=== PATIENT | male | born 1985 | race Caucasian/White ===

== ENCOUNTER → 2019-09-26 12:24 | Outpatient (CLI) | payer OTHER, SELFPAY ==
--- NOTE | 2019-09-26 12:34 | XR_ITS ---
PROCEDURE: XR ANKLE WT BEARING RT MIN 3V CLINICAL INDICATION: R ankle injury Posttraumatic pain COMPARISON: ANKL3 ANKLE-LT-3 VIEWS from 01/31/2014 ANKL3 ANKLE-LT-3 VIEWS from 02/21/2014 ANKL3 ANKLE-LT-3 VIEWS from 03/07/2014 FINDINGS: No fracture, dislocation, lytic change, or blastic change evident. No significant degenerative change IMPRESSION: No acute findings. Dictated by: Hamzah Wilkerson MD 09/26/2019 15:24 Electronically signed by Hamzah Wilkerson MD in [place] 09/26/2019 15:24
== END ==
PROVIDERS: PCP Emergency Medicine; Visit Provider Nurse Practitioner Family
DX: M25.571 Pain in right ankle and joints of right foot (principal)
CPT/HCPCS: 73610

== ENCOUNTER 2020-06-16 15:45 | Emergency (ER) | payer BC, SELFPAY ==
[2020-06-16 16:25] VITALS: BP 136/87; PULSE 77; RESP 19; TEMP 36.8; O2SAT 98; BMI 31.0
--- NOTE | 2020-06-16 16:48 | HMH.EDUTC ---
[facility] [place] Clinical Impression: Pseudogout of foot Qualifiers: Laterality: right Qualified Code(s): M11.271 - Other chondrocalcinosis, right ankle and foot Disposition: Home, Self-Care Condition on Discharge: Good Instructions: DI for Pseudogout, Indomethacin Additional Instructions: Start medication tomorrow as advised Take medication as prescribed Return if needed Follow up with your Family Doctor if no improvement or any worsening of symptoms Straight to ER if any life threatening symptoms Prescriptions: Indomethacin 50 mg PO TID #15 cap Transmission Status: Pending to [facility] Referrals: Ángel Garcia MD [Primary Care Provider] - As needed Time of Disposition: 17:14 Medical Decision Making - Chris Inquiry Pt receiving controlled substance: No Chris was queried for this patient: No Vital Signs: 06/16/20 16:25 Temperature 98.2 F Temperature Source Oral Pulse Rate [Right Brachial] 77 Respiratory Rate 19 Blood Pressure [Right Arm] 136/87 Blood Pressure Mean [Right Arm] 103 Blood Pressure Source [Right Arm] Automatic Cuff Blood Pressure Position [Right Arm] Sitting 02 Sat by Pulse Oximetry 98 Oxygen Delivery Method Room Air - Lab Data Lab results reviewed: Yes: I reviewed the patient's lab results. Lab Results 06/16/20 16:37: Uric Acid 7.9 Orders (Tests/Meds): ED MEDICATIONS Discontinued Medications Generic Name Dose Route Start Last Admin Trade Name Iris PRN Reason Stop Dose Admin Ketorolac Tromethamine 60 mg 06/16/20 16:52 Ketorolac 60mg/2ml Vial IM 06/16/20 16:53 ONCE ONE Methylprednisolone Sodium Succinate 125 mg 06/16/20 16:52 Methylprednisolone Sod Succ 125mg Vial IM 06/16/20 16:53 ONCE ONE [facility] [place] - General Stated complaint: gout Time Seen by Provider: 06/16/20 16:48 Mode of Arrival: Ambulatory Source of Information: Patient Limitations: No Limitations Description of Symptoms (Recalled from Triage Doc. by RN): PATIENT C/O POSSIBLE GOUT IN LEFT GREAT TOE SINCE WEDNESDAY HEENT Symptoms (Recalled from RN notes): No Resp Symptoms (Recalled from RN notes): No Skin Symptoms (Recalled from RN notes): No MS Symptoms (Recalled from RN notes): No Functional Status (Recalled from RN notes): WNL - History of Present Illness Provider Complaint: Patient states that he has a history of gout States that he noticed he was having some pain, swelling and redness in his right great toe like he has had before with gout since Wed so he came in to get checked to see if he had gout again - Related Data Previous Rx's Medication Instructions Recorded Indomethacin 50 mg PO TID #15 cap 06/16/20 Allergies Allergy/AdvReac Type Severity Reaction Status Date / Time Penicillins Allergy Verified 11/13/19 08:41 - Worker's Comp Is this a Worker's Comp case?: No [facility] History - Hepatitis A Screen Drug use history?: No High risk sexual behaviors?: No History of sexually transmitted infection?: No Currently employed?: No Childcare worker?: No Do you have indoor plumbing?: Yes Do you have electricity?: Yes Attestation statement:: This patient has been screened for Hepatitis A risk factors. I have reviewed the patient's past medical history: Yes Medical History: Reports:: Migraine Denies:: Diabetes Mellitus Type 1, Diabetes Mellitus Type 2, MRSA Laterality Cases: Right: Arthroscopy Shoulder Other Surgeries: Yes: No Previous Surgery Amputation: No Fractures: Yes (ankle and toes) - Social History Smoking Status: Current every day smoker Tobacco Type: cigarettes # Packs/Day (cigarettes): 1 Alcohol Intake: never Alcohol Intake Frequency:: a few times a month Substance Use Type: former substance user Occupational Status: other Housing: house Household Members: family Family Hx:: Hypertension, Hyperlipidemia ROS Obtained: Yes All systems reviewed & no additional complaints, Yes Systems reviewed as appropriate & no additiona
[2020-06-16 17:01] LABS: Uric Acid 7.9 mg/dl (3.5-8.5)
[2020-06-16 17:18] VITALS: BP 136/87; PULSE 77; RESP 19; TEMP 36.8; O2SAT 98
== END 2020-06-16 17:20 | disposition home or self-care (01) ==
PROVIDERS: Emergency Provider Nurse Practitioner; PCP Emergency Medicine
DX: M11.271 Other chondrocalcinosis, right ankle and foot (principal); F17.210 Nicotine dependence, cigarettes, uncomplicated; Z88.0 Allergy status to penicillin
CPT/HCPCS: 84550; 96372; 99202; G0463

== ENCOUNTER 2021-02-25 17:37 | Emergency (ER) | payer BC, SELFPAY ==
[2021-02-25 19:25] VITALS: BP 133/79; PULSE 86; RESP 14; TEMP 36.7; O2SAT 98; BMI 31.3
--- NOTE | 2021-02-25 19:44 | HMH.EDUTC ---
[facility] [place] Clinical Impression: Viral syndrome Disposition: Home, Self-Care Condition on Discharge: Good Instructions: DI for Viral Syndrome, DI for COVID-19 (Suspected or Confirmed ), Preventing the Spread of Coronavirus Discharge Instructions Additional Instructions: Drink plenty of fluids. Take tylenol or ibuprofen for pain or fever. Take the medications as directed. Follow up with your regular doctor. GO TO THE ER FOR ANY WORSENING SYMPTOMS Quarantine until you know the results of your covid-19 test. If it is positive, the health department should call you and give you further instructions about your length of Quarantine and other things. Notify your school or workplace of your results and follow their instructions regarding return to work/school. Referrals: Ángel Garcia MD [Primary Care Provider] - Forms: Work/School Release Time of Disposition: 19:48 Medical Decision Making - Medical Records Medical records reviewed: No: I reviewed the patient's medical records. - Chris Inquiry Pt receiving controlled substance: No Vital Signs: 02/25/21 19:25 02/25/21 19:50 Temperature 98.1 F 98.1 F Temperature Source Oral Pulse Rate 86 Pulse Rate [Left] 86 Respiratory Rate 14 14 Blood Pressure 133/79 Blood Pressure [Right Arm] 133/79 Blood Pressure Mean [Right Arm] 97 02 Sat by Pulse Oximetry 98 - Lab Data Lab results reviewed: Yes: I reviewed the patient's lab results. Orders (Tests/Meds): ORDERS Category Date Time Status Covid-19 Nasal PCR ([facility]) Routine Lab 02/25/21 19:30 Received [facility] [place] HPI - General Stated complaint: fever,chills,RUIZ Time Seen by Provider: 02/25/21 19:44 Mode of Arrival: Ambulatory Source of Information: Patient Limitations: No Limitations Description of Symptoms (Recalled from Triage Doc. by RN): pt c/o of a migraine since yesterday. pt also states is chilling. HEENT Symptoms (Recalled from RN notes): Yes (migraine) Resp Symptoms (Recalled from RN notes): No Skin Symptoms (Recalled from RN notes): No MS Symptoms (Recalled from RN notes): No Functional Status (Recalled from RN notes): chills - History of Present Illness Provider Complaint: He states that he has been feeling bad today, He has had chills and body aches. He denies any congestion or shortness of breath. He has also had a headache. - Related Data Previous Rx's Medication Instructions Recorded Indomethacin 50 mg PO TID #15 cap 06/16/20 Allergies Allergy/AdvReac Type Severity Reaction Status Date / Time Penicillins Allergy Verified 11/13/19 08:41 - Worker's Comp Is this a Worker's Comp case?: No H History - Hepatitis A Screen Drug use history?: No High risk sexual behaviors?: No History of sexually transmitted infection?: No Currently employed?: No Childcare worker?: No Do you have indoor plumbing?: Yes Do you have electricity?: Yes Attestation statement:: This patient has been screened for Hepatitis A risk factors. I have reviewed the patient's past medical history: Yes Medical History: Reports:: Migraine Denies:: Diabetes Mellitus Type 1, Diabetes Mellitus Type 2, MRSA Laterality Cases: Right: Arthroscopy Shoulder Other Surgeries: Yes: No Previous Surgery Amputation: No Fractures: Yes (ankle and toes) - Social History Smoking Status: Current every day smoker Tobacco Type: cigarettes # Packs/Day (cigarettes): 1 Alcohol Intake: never Alcohol Intake Frequency:: a few times a month Substance Use Type: former substance user Occupational Status: other Housing: house Household Members: family Family Hx:: Hypertension, Hyperlipidemia ROS Obtained: Yes All systems reviewed & no additional complaints - Constitutional Constitutional: Reports system reviewed and no additional complaints, except as docu - Eyes Eyes: Reports system reviewed and no additional complaints, except as docu - ENT Ears, Nose, Mouth, and Throat: Reports system r
[2021-02-25 19:50] VITALS: BP 133/79; PULSE 86; RESP 14; TEMP 36.7
== END 2021-02-25 19:54 | disposition home or self-care (01) ==
PROVIDERS: Emergency Provider Nurse Practitioner Family; PCP Emergency Medicine
DX: B34.9 Viral infection, unspecified (principal); Z20.822 Contact with and (suspected) exposure to COVID-19
CPT/HCPCS: 99202; C9803; G0463; U0003; U0005

== ENCOUNTER 2023-07-27 12:55 | Outpatient (CLI) | payer BC, SELFPAY ==
[2023-07-27 13:02] LABS: Basophils # 0.1 K/mm3 (0-0.2); Basophils % 1.1 % (0.1-2.0); Eosinophils # 0.2 K/mm3 (0.0-0.4); Eosinophils % 2.7 % (0.1-12.0); Hematocrit 45.1 % (42.0-52.0); Hemoglobin 15.3 g/dL (14.1-18.0); Lymphocytes # 2.8 K/mm3 (0.7-4.5); Lymphocytes % 39.4 % (10-50); Mean Corpuscular Hemoglobin 29.3 pg (27.0-31.2); Mean Corpuscular Volume 86.3 fl (80-94); Mean Platelet Volume 9.3 fl (7.4-10.4); Monocytes # 0.6 K/mm3 (0.1-1.0); Monocytes % 8.5 % (1.7-9.3); Neutrophils # 3.4 K/mm3 (1.8-7.8); Neutrophils % 48.4 % (37.0-80.0); Platelet Count 289 K/mm3 (142-424); Red Blood Count 5.23 M/mm3 (4.60-6.20); Red Cell Distribution Width 14.2 % (11.5-17.5)
[2023-07-27 13:08] LABS: Alanine Aminotransferase 68 U/L (12-78); Albumin Level 4.9 g/dl (3.5-5.0); Albumin/Globulin Ratio 1.6 (1.1-1.8); Alkaline Phosphatase 65 U/L (38-126); Anion Gap 12.6 mEq/L (5-15); Aspartate Amino Transferase 52 U/L (17-59); Bilirubin,Total 0.5 mg/dl (0.2-1.3); Blood Urea Nitrogen 16 mg/dl (9-20); Calcium 9.9 mg/dl (8.4-10.2); Carbon Dioxide 26 mmol/L (22.0-30.0); Chloride 105 mmol/L (98-107); Cholesterol 301 mg/dl (140-200); Estimated Glomerular Filt Rate 85 ml/min (>60); GFR (African American) 103 ML/MIN (>60); Glucose 120 mg/dl (74-100); HDL Cholesterol 30 mg/dl (40-60); Potassium 4.6 mmoL/L (3.5-5.1); Sodium 139 mmol/L (136-145); Total Protein,Serum 7.9 g/dl (6.3-8.2); Uric Acid 8.5 mg/dl (3.5-8.5)
[2023-07-27 13:19] LABS: Direct LDL Cholesterol 62.73 mg/dL (100-129)
[2023-07-27 13:27] LABS: 25-OH Vitamin D, Total 21.6 ng/mL (30-100)
[2023-07-27 13:39] LABS: Thyroid Stimulating Hormone 2.12 uIU/mL (0.465-4.68); Triglycerides 1145 mg/dl (30-150)
== END 2023-07-27 23:59 ==
LOC: LAB.DROPOF 12:56
PROVIDERS: PCP Nurse Practitioner Family; Visit Provider Nurse Practitioner Family
DX: R53.83 Other fatigue (principal); E55.9 Vitamin D deficiency, unspecified; Z68.34 Body mass index [BMI] 34.0-34.9, adult
CPT/HCPCS: 80053; 80061; 82306; 84443; 84550; 85025

== ENCOUNTER 2023-12-19 14:29 | Emergency (ER) | payer BC, SELFPAY ==
[2023-12-19 14:51] VITALS: BP 141/77; PULSE 85; RESP 16; TEMP 36.6; O2SAT 96; BMI 31.0
--- NOTE | 2023-12-19 15:05 | EXP.UTC ---
Discharge Plan Disposition Patient Disposition: Home, Self-Care Condition: Good Prescriptions Prescriptions: New methylprednisolone 4 mg Tablets,Dose Pack 4 mg PO DIRECTED 6 Days Qty: 21 0RF Rx Instructions: Take 1 pack as directed for 6 days No Action ergocalciferol (vitamin D2) 50 mcg (2,000 unit) capsule 50 mcg PO DAILY Qty: 30 4RF ergocalciferol (vitamin D2) 1,250 mcg (50,000 unit) capsule 1,250 mcg PO WEEKLY Qty: 9 3RF rosuvastatin 20 mg tablet See Rx Instructions .ROUTE .COMPLEX Qty: 90 0RF Dose Instruction: TAKE ONE TABLET BY MOUTH EVERY DAY Rx Instructions: TAKE ONE TABLET BY MOUTH EVERY DAY indomethacin 25 mg capsule See Rx Instructions .ROUTE .COMPLEX Qty: 30 0RF Dose Instruction: TAKE ONE CAPSULE BY MOUTH THREE TIMES DAILY NEEDED FOR GOUT ---TAKE WITH FOOD OR MILK--- Rx Instructions: TAKE ONE CAPSULE BY MOUTH THREE TIMES DAILY NEEDED FOR GOUT ---TAKE WITH FOOD OR MILK--- Referrals Follow up/Referrals: Hubert Gan APRN [Primary Care Provider] - See instructions Oksana Maria DPM [Staff Physician] - See instructions Activity Restrictions/Add. Instructions Additional Instructions/Restrictions: Rest the extremies., Take the medications as directed. Don't start the oral steroids (medrol dose pack) until tomorrow. Follow up with Dr. Maria (podiatry) if you continue to have symptoms. I put in a referral but you need to call her office and schedule an appointment. Follow up with your regular doctor. GO TO THE ER FOR ANY WORSENING SYMPTOMS Clinical Impressions Clinical Impression: Gout Qualifiers: Gout site: toe Gout etiology: unspecified cause Chronicity: acute Laterality: right Qualified Code(s): M10.9 - Gout, unspecified Instructions Patient Instructions: DI for Gout, Dexamethasone Injection, Methylprednisolone Print Language Print Language: Indonesian Discharge ED Provider: Jesu Tanner [facility] General Stated complaint: gout in both feet and ankles Mode of Arrival: Ambulatory Source of Information: Patient Limitations: No Limitations Time Seen by Provider: 12/19/23 15:05 Description of Symptoms (Recalled from Triage Doc. by RN): Pt reports pain in jen feet r/t gout flare up. HEENT Symptoms (Recalled from RN notes): No Resp Symptoms (Recalled from RN notes): No Skin Symptoms (Recalled from RN notes): No MS Symptoms (Recalled from RN notes): No Functional Status (Recalled from RN notes): reports pain in jen feet History of Present Illness Provider Complaint: He states that for the past 2 days he has had worsening bilateral foot pain. He states that he has a history of gout and that he is having a flare up at this time. Related Data Previous Rx's ?Medication ?Instructions ?Recorded ergocalciferol (vitamin D2) 1,250 1,250 mcg PO WEEKLY #9 caps 08/09/23 mcg (50,000 unit) capsule ergocalciferol (vitamin D2) 50 mcg 50 mcg PO DAILY #30 caps 08/09/23 (2,000 unit) capsule indomethacin 25 mg capsule See Rx Instructions .Route 12/18/23 .COMPLEX #30 caps rosuvastatin 20 mg tablet See Rx Instructions .Route 12/18/23 .COMPLEX #90 tabs methylprednisolone 4 mg tablets in 4 mg PO DIRECTED 6 days #21 tabs 12/19/23 a dose pack Allergies Allergy/AdvReac Type Severity Reaction Status Date / Time Penicillins Allergy Verified 07/27/23 08:35 Worker's Comp Is this a Worker's Comp case?: No [facility] Disclaimer: The information contained in this section may have been updated after the patient was seen, as this information can be updated by other users. Social History Smoking Status: Current every day smoker tobacco type: cigarettes packs per day: 1 alcohol intake: never substance use type: former substance user current occupational status: other Travel in the last 8 weeks: None household members: family housing: house ROS Obtained: Yes All systems reviewed & no additional complaints excep
[2023-12-19 15:53] VITALS: BP 141/77; PULSE 85; RESP 16; TEMP 36.6; O2SAT 96
== END 2023-12-19 15:54 | disposition home or self-care (01) ==
PROVIDERS: Emergency Provider Nurse Practitioner Family; PCP Nurse Practitioner Family
DX: M10.071 Idiopathic gout, right ankle and foot (principal); M10.072 Idiopathic gout, left ankle and foot; M79.671 Pain in right foot; M79.672 Pain in left foot
CPT/HCPCS: 96372; 99212; 99214; G0463; J1100; J1885

== ENCOUNTER 2024-01-06 11:45 | Outpatient (CLI) | payer BC, SELFPAY ==
[2024-01-06 19:06] LABS: Basophils # 0.1 K/mm3 (0-0.2); Basophils % 0.6 % (0.1-2.0); Eosinophils # 0.1 K/mm3 (0.0-0.4); Eosinophils % 1.4 % (0.1-12.0); Hematocrit 43.3 % (42.0-52.0); Hemoglobin 14.1 g/dL (14.1-18.0); Lymphocytes # 1.9 K/mm3 (0.7-4.5); Lymphocytes % 19.3 % (10-50); Mean Corpuscular HGB Conc 32.6 g/dL (31.8-35.4); Mean Corpuscular Volume 89.1 fl (80-94); Mean Platelet Volume 9.9 fl (7.4-10.4); Monocytes # 0.7 K/mm3 (0.1-1.0); Monocytes % 7.4 % (1.7-9.3); Neutrophils % 71.4 % (37.0-80.0); Platelet Count 270 K/mm3 (142-424); Red Blood Count 4.86 M/mm3 (4.60-6.20); Red Cell Distribution Width 13.8 % (11.5-17.5); White Blood Count 9.9 K/mm3 (4.8-10.8)
[2024-01-06 19:22] LABS: Alanine Aminotransferase 40 U/L (12-78); Albumin Level 4.3 g/dl (3.5-5.0); Albumin/Globulin Ratio 1.3 (1.1-1.8); Alkaline Phosphatase 57 U/L (38-126); Anion Gap 13.1 mEq/L (5-15); Aspartate Amino Transferase 35 U/L (17-59); Bilirubin,Total 0.9 mg/dl (0.2-1.3); Blood Urea Nitrogen 17 mg/dl (9-20); Calcium 9.5 mg/dl (8.4-10.2); Carbon Dioxide 29 mmol/L (22.0-30.0); Chloride 103 mmol/L (98-107); Chol/HDL Ratio 8.3 (1-3.5); Cholesterol 242 mg/dl (140-200); Estimated Glomerular Filt Rate 95 ml/min (>60); GFR (African American) 116 ML/MIN (>60); Globulin 3.2 g/dL (1.3-3.2); Glucose 135 mg/dl (74-100); HDL Cholesterol 29 mg/dl (40-60); Potassium 4.1 mmoL/L (3.5-5.1); Sodium 141 mmol/L (136-145); Total Protein,Serum 7.5 g/dl (6.3-8.2); Uric Acid 8.3 mg/dl (3.5-8.5)
[2024-01-06 19:34] LABS: Direct LDL Cholesterol 74.74 mg/dL (100-129)
[2024-01-06 19:39] LABS: 25-OH Vitamin D, Total 25.5 ng/mL (30-100)
[2024-01-06 19:44] LABS: Triglycerides 704 mg/dl (30-150)
[2024-01-06 19:45] LABS: T4 (Thyroxine) 7.7 ug/dl (5.53-11.0)
[2024-01-06 19:53] LABS: Prostate Specific Ag Screen 0.8 ng/ml (0.0-4.0)
[2024-01-06 19:59] LABS: Thyroid Stimulating Hormone 1.68 uIU/mL (0.465-4.68)
[2024-01-07 08:06] LABS: HIV (1&2) Antibody Rapid NONREACTIVE (NONREACTIVE)
[2024-01-08 09:57] LABS: HBsAg Screen Negative (Negative); HCV Ab Non Reactive (Non Reactive); Hep A Ab, IGM Negative (Negative); Hep B Core Ab, IgM Negative (Negative)
== END 2024-01-06 23:59 | disposition home or self-care (01) ==
LOC: LAB.DROPOF 01-07 14:44
PROVIDERS: PCP Nurse Practitioner Family; Visit Provider Nurse Practitioner Family
DX: M10.9 Gout, unspecified (principal); M25.571 Pain in right ankle and joints of right foot; M25.572 Pain in left ankle and joints of left foot
CPT/HCPCS: 80050; 80053; 80061; 80074; 82306; 84436; 84443; 84550; 85025; 86803; 87389; G0103

== ENCOUNTER 2024-01-25 08:13 | Outpatient (CLI) | payer BC, SELFPAY ==
--- NOTE | 2024-01-25 08:17 | XR_ITS ---
FINAL REPORT CLINICAL HISTORY: Ankle Pain FINDINGS: Right ankle Three views were obtained. There is no acute fracture or dislocation. The joint spaces appear normal. Small plantar spur is identified. There is mild soft tissue edema. IMPRESSION: Soft tissue edema without acute bony abnormality. Reviewed, Interpreted and Dictated by Myles Gallego MD Transcribed by Karyn Moore Authenticated and [facility]
--- NOTE | 2024-01-25 08:17 | XR_ITS ---
FINAL REPORT CLINICAL HISTORY: Foot Pain FINDINGS: Right foot Three views were obtained. There is no acute fracture or dislocation. There are mild hypertrophic changes of the 1st interphalangeal joint. No soft tissue abnormality is identified. IMPRESSION: No acute process. Reviewed, Interpreted and Dictated by Myles Gallego MD Transcribed by Karyn Moore Authenticated and [facility]
--- NOTE | 2024-01-25 08:17 | XR_ITS ---
FINAL REPORT CLINICAL HISTORY: Foot Pain FINDINGS: Left foot Three views were obtained. There is no acute fracture or dislocation. The joint spaces appear normal. No soft tissue abnormality is identified. IMPRESSION: No acute process. Reviewed, Interpreted and Dictated by Myles Gallego MD Transcribed by Karyn Moore Authenticated and [facility]
--- NOTE | 2024-01-25 08:17 | XR_ITS ---
FINAL REPORT CLINICAL HISTORY: Ankle Pain FINDINGS: Left ankle Three views were obtained. There is no acute fracture or dislocation. The joint spaces appear normal. No soft tissue abnormality is identified. IMPRESSION: No acute process. Reviewed, Interpreted and Dictated by Myles Gallego MD Transcribed by Karyn Moore Authenticated and [facility]
[2024-01-25 10:18] LABS: Hemoglobin A1C 6.3 % (4.0-6.0)
[2024-01-25 11:44] LABS: Erythrocyte Sedimentation Rate 66 mm/hr (0-15)
[2024-01-25 11:50] LABS: Alanine Aminotransferase 54 U/L (12-78); Albumin Level 4.6 g/dl (3.5-5.0); Albumin/Globulin Ratio 1.6 (1.1-1.8); Alkaline Phosphatase 51 U/L (38-126); Anion Gap 8.5 mEq/L (5-15); Aspartate Amino Transferase 38 U/L (17-59); Bilirubin,Total 0.9 mg/dl (0.2-1.3); Blood Urea Nitrogen 10 mg/dl (9-20); Calcium 9.8 mg/dl (8.4-10.2); Carbon Dioxide 30 mmol/L (22.0-30.0); Chloride 103 mmol/L (98-107); Estimated Glomerular Filt Rate 95 ml/min (>60); GFR (African American) 116 ML/MIN (>60); Globulin 2.9 g/dL (1.3-3.2); Glucose 126 mg/dl (74-100); Potassium 4.5 mmoL/L (3.5-5.1); Sodium 137 mmol/L (136-145); Total Protein,Serum 7.5 g/dl (6.3-8.2); Uric Acid 7.2 mg/dl (3.5-8.5)
[2024-01-25 11:55] LABS: C-Reactive Protein 40.9 mg/L (0-4)
[2024-01-26 15:26] LABS: RA Latex Turbid. 12.3 IU/mL (<14.0)
[2024-01-27 15:59] LABS: Antinuclear Antibodies, IFA Negative (.)
== END 2024-01-25 23:59 | disposition home or self-care (01) ==
PROVIDERS: Podiatrist; PCP Nurse Practitioner Family; Visit Provider Nurse Practitioner Family
DX: M79.671 Pain in right foot (principal); M79.672 Pain in left foot; M25.571 Pain in right ankle and joints of right foot; M25.572 Pain in left ankle and joints of left foot; R60.9 Edema, unspecified
CPT/HCPCS: 36415; 73610; 73630; 80053; 83036; 84550; 85651; 86038; 86140; 86431

== ENCOUNTER 2024-11-29 08:39 | Outpatient (CLI) | payer BC, SELFPAY ==
[2024-12-04 10:16] LABS: Lyme B. burgdorferi PCR Blood Negative (Negative)
== END 2024-11-29 23:59 | disposition home or self-care (01) ==
LOC: LAB.DROPOF 11-30 11:00
PROVIDERS: PCP Nurse Practitioner Family; Visit Provider Nurse Practitioner Family
DX: S80.869A Insect bite (nonvenomous), unspecified lower leg, initial encounter (principal); W57.XXXA Bitten or stung by nonvenomous insect and other nonvenomous arthropods, initial encounter
CPT/HCPCS: 86618; 86757; 87476